=== PATIENT | male | born 1990 | race Caucasian/White ===

== ENCOUNTER 2019-03-29 10:36 | Inpatient (IN) | payer OTHER ==
[2019-03-29] VITALS (10 sets, daily range): BP systolic 96–132; BP diastolic 56–82
[~2019-03-29] VITALS: Ht 172.7 cm
--- NOTE | ~2019-03-29 | D ---
[facility] [place] [address] DISCHARGE SUMMARY Name: STACY CALVILLO Room #: 463-P [facility] IN M.R.#: [id number] Admission: 03/29/19 Attend Phys: Giovanni Cotton MD Discharge: 03/30/19 Date of : 86 Report #: [id number] THIS REPORT FOR: //name// CC: Giovanni Cotton FAM physician/PCP NO PCP DATE OF SERVICE: 03/30/2019 ATTENDING PHYSICIAN: Dr. Cotton. CONSULTING PHYSICIANS: None. DISCHARGE DIAGNOSIS: Acute appendicitis. PROCEDURE PERFORMED: Laparoscopic appendectomy. HOSPITAL COURSE: The patient was admitted to the hospital and taken to the operating room for the above stated procedure. He tolerated the procedure well and was transferred to the floor for further recovery. Postop day #1, the patient is doing well, ready for discharge. DISCHARGE DISPOSITION: Home. CONDITION: Improved. MEDICATIONS: Please see discharge med rec. DIET: Regular. ACTIVITIES: 1. Do not lift, twist, push or pull greater than 15 pounds for [address] or work, or do any strenuous activities while taking narcotics. 3. Okay to shower. No soaking in bath or any water for 2 weeks. 4. Follow up with myself in clinic. By: [id number] Giovanni Cotton MD /nt
[2019-03-29 11:13] LABS: ABSOLUTE NEUTROPHILS 8.8 thou/uL (1.4-8.2); BASOPHILS 0.6 % (0.0-2.0); EOSINOPHILS 0.5 % (0.0-3.0); HEMATOCRIT 48.6 % (42.0-52.0); HEMOGLOBIN 16.3 gm/dL (14.0-18.0); MCH 28.9 pg (26.0-34.0); MCHC 33.6 g/dL (28.0-37.0); MCV 86.1 fL (80.0-100.0); MONOCYTES 6.7 % (1.0-8.0); PLATELET COUNT 314 thou/uL (150-400); POLYS 81.2 % (36.0-66.0); RBC 5.64 mil/uL (4.50-6.00); RDW 12.5 % (10.5-14.5); WBC 10.8 thou/uL (4.0-11.0)
[2019-03-29 11:18] LABS: CALCIUM 10.1 mg/dL (8.5-10.1); CREATININE 1.2 mg/dL (0.7-1.3); POTASSIUM 3.4 mmol/L (3.5-5.1)
[2019-03-29 11:20] LABS: URINE BILIRUBIN NEGATIVE (Negative); URINE BLOOD NEGATIVE (Negative); URINE CLARITY CLEAR; URINE COLOR YELLOW; URINE GLUCOSE-RANDOM* NEGATIVE (Negative); URINE KETONES 2+ (Negative); URINE LEUKOCYTES-REFLEX NEGATIVE (Negative); URINE NITRITE-REFLEX NEGATIVE (Negative); URINE PROTEIN (DIPSTICK) TRACE (Negative); URINE SPECIFIC GRAVITY 1.015 (1.005-1.035); URINE UROBILINOGEN 0.2 E.U./dl (0.2-1.0)
[2019-03-29 11:24] LABS: TOTAL BILIRUBIN 0.8 mg/dL (<0.1-1.0)
--- NOTE | 2019-03-29 13:18 | NUR ---
PT CONFIRMED THAT THE LAST TIME HE HAD ANYTHING TO EAT WAS ON 03/28/2019 @ 1900 HOURS. THE LAST TIME HE HAD ANYTHING TO DRINK WAS ON 03/29/2019 @ 0900 WHICH HE SAID HE IMMEDIATELY VOMITED THE WATER BACK UP.
--- NOTE | 2019-03-29 19:27 | NUR ---
Received pt from the ER with severe pain on the abdomen due to appendicitis, managed with medication. Pt was taken down for OR, came back before shift change. Medication and fluids are wel tolerated. is at the bedside. POC followed, no pain has been noted post op. Endorsed to the4 night nurse.
[2019-03-30 03:30] VITALS: BP 91/52
--- NOTE | 2019-03-30 04:21 | NUR ---
ASSUMED CARE AROUND 191. AXOX4. AT BEDSIDE AT ALL TIMES TO ACCOMODATE PT'S NEEDS. ALL PAINS MEDS ADMIN PER MD ORDER. LOW BP NOTED IN AM. PT WAS HEAVILY ASLEEP. LAP SITES C&D&I WITH DERMABOND. ABD IS FLAT AND SOFT WITH POSITIVE BOWEL SOUNDS. NO BM AT THIS TIME. PT PREFERRED TO VOID IN URINAL FOR ACCURATE TRACK OF I&O. NO S/S ACUTE DISTRESS NOTED OR REPORTED AT THIS TIME. WILL CONT TO MONITOR FOR ANY CHANGES IN CONDITION.
[2019-03-30 07:25] VITALS: BP 104/62
[2019-03-30] MEDS ORDERED: OXYCODONE HCL 55 MG PO (14:34)
[2019-03-30] MEDS ORDERED: IBUPROFEN 200200 M1 PO (14:34)
[2019-03-30] MEDS ORDERED: ACETAMINOPHEN325 M1 PO (14:34)
[2019-03-30] MEDS ORDERED: MIRALAX17 GM PO (14:35)
[2019-03-30] MEDS ORDERED: COLACE 100 MG100 MG PO (14:35)
[2019-03-30 15:28] VITALS: BP 104/62
--- NOTE | 2019-03-30 16:43 | NUR ---
Assumed pt care this am, VS stable, pain is managed with medications with partial relief. Pt is able to ambulate the halls. POC followed ryan signs and verbalizations of distress have been noted. IV removed DCd instructions and prescriptions given to the pt, pt is now dc.
--- NOTE | 2019-03-31 17:07 | PATH ---
[facility] [address] [place] [address] PATHOLOGY RPT PROCEDURE Name: STACY CALVILLO Room #: 463-P [facility] IN M.R.#: [id number] Admission: 03/29/19 Date of : 86 Discharge: 03/30/19 Report #: [id number] Path Case #: [id number] [facility] Accession Number: [id number] . 01 Material submitted: . appendix - APPENDIX . 01 Clinical history: . Appendicitis . 02 Diagnosis: Appendix, appendectomy: - Marked acute appendicitis along with marked serositis. (IUV/db; 03/31/2019) LBQ 03/31/2019 1517 Local . 02 Electronically signed: . Brianna Frias MD, Pathologist NPI- [id number] . 01 Gross description: . The specimen is received in formalin, labeled "Mofareh Ghazwani, appendix". Received is a vermiform appendix measuring 6.9 cm in length by up to 1.0 cm in diameter with a small amount of attached mesoappendix. The serosal surface is pale morris to pink-morris in appearance with a slight amount of overlying adhesions. The surgical margin is closed with a line of lilibeth. The lilibeth are removed the new margin is inked black. Sectioning reveals a dilated lumen filled with fecal material. The specimen is submitted representatively in cassettes A1 and A2, with the proximal margin and bisected tip submitted in cassette A1. (CAA; 03/30/2019) QAC/QAC 03/30/2019 1442 Local . 02 Pathologist provided ICD-10: K35.80, K65.8 . 02 CPT . 393879 Specimen Comment: A courtesy copy of this report has been sent to [phone] Specimen Comment: Report sent to Performed at: [address] [id number] MD Rios Noland MD Phone: [phone] Performed at: [address] [id number] [address] [address] PATHOLOGY RPT PROCEDURE Name: STACY CALVILLO Room #: 463-P DIS IN M.R.#: [id number] Admission: 03/29/19 Date of : 86 Discharge: 03/30/19 Report #: [id number] Path Case #: [id number] MD Brianna Frias MD Phone: [phone]
== END 2019-03-30 16:30 | disposition home or self-care (01) | DRG 343 ==
LOC: ER 10:36 → 4W 13:17 → EROBS 13:17 → 4W 14:09
PROVIDERS: Emergency Medicine; ADMIT Surgery
PROC: 0DTJ4ZZ Resection of Appendix, Percutaneous Endoscopic Approach (ICD-10-PCS; principal; 2019-03-29)
DX: K35.80 Unspecified acute appendicitis (principal); Z79.891 Long term (current) use of opiate analgesic; Z79.899 Other long term (current) drug therapy
CPT/HCPCS: 10040; 50010; 50101; 50249; 50411; 50555; 50558; 50739; 50740; 52265; 53307; 53310; 53312; 54022; 54118; 56525; 56526; 62110; 62900; 70005